=== PATIENT | male | born 1980 | race Caucasian/White ===

== ENCOUNTER 2016-12-07 04:10 | Day surgery (SDC) | payer OTHER ==
--- NOTE | ~2016-12-07 | US113 ---
[facility] A Service of [facility] RADIOLOGY TEXT RESULTS PATIENT: HUSSEIN CALLES LOCATION: [facility] : 84 UNIT #: [id number] AGE: [address]: Rogelio Bartholomew MD SEX: M ORDER DR: [id number] [facility] [address] [facility]. [place], [place] [address] [id number] I MR#: [id number] Acc #: [id number] NAME: HUSSEIN CALLES : 1980 SEX: M STUDY DATE/TIME: 12/07/2016 5:30 UNIT: [facility] ROOM: STUDY DESCRIPTION: US Scrotal Duplex Complete Attending Physician: Rogelio Bartholomew M.D. Ordering Physician: Nitin Bobo Aprn Primary Care Physician: Primary Care Physician No MEDICAL IMAGING REPORT This report is preliminary unless electronic signature is present EXAM Scrotal ultrasound examination including testicular Doppler vascular evaluation, 12/07/16 HISTORY 36-year-old male in the ED complaining of left side scrotal pain beginning at 03:00 a.m. today. TECHNIQUE Scrotal ultrasound examination was performed using high-resolution dash-scale ultrasound imaging along with color-flow and duplex Doppler vascular imaging. FINDINGS Both testes are normal in size and ultrasound appearance. No mass or other focal testicular lesion is demonstrated. The left epididymis is mildly enlarged when compared with the right. This is most likely inflammatory. Doppler evaluation shows normal, bilaterally symmetric testicular blood flow with no evidence of testicular torsion or acute orchitis. Mild acute epididymitis is a consideration. There is no scrotal fluid collection or additional abnormality. IMPRESSION 1. Both testes are normal in size and ultrasound appearance. No evidence of testicular mass or other focal lesion. 2. Normal bilateral testicular Doppler evaluation. No evidence of testicular torsion or acute orchitis. 3. Slight enlargement of the left epididymis with potential asymmetric prominence of plastic of epididymis blood flow on the left. Mild acute epididymitis is a consideration. 4. There is no hydrocele or other scrotal fluid collection. [facility] A Service of [facility] RADIOLOGY TEXT RESULTS PATIENT: HUSSEIN CALLES LOCATION: [facility] [address]-2 : [birth year] UNIT #: [id number] AGE: [address]: Rogelio Bartholomew MD SEX: M ORDER DR: Dictated by... Thomas Pacheco M.D. THIS IS AN ELECTRONICALLY VERIFIED REPORT Thomas Pacheco M.D. at 12/07/2016 4:12 PM PAT/jethro TD: 12/07/2016 10:48 JOB #: [id number] MEDICAL IMAGING REPORT COPY
--- NOTE | ~2016-12-07 | HP ---
Unit #: [id number] #: [id number] Patient: HUSSEIN CALLES [id number] [address] [address] [id number] Susannah MR#: [id number] NAME: HUSSEIN CALLES ROOM: Age: 36 Sex: M Admission Date: 12/07/2016 : 1980 Attending Physician: Rogelio Bartholomew M.D. Primary Care Physician: No Primary Care Physician HISTORY AND PHYSICAL CHIEF COMPLAINT Left testicular and flank pain. HISTORY This 36-year-old man presented to the emergency department primarily with acute left flank pain and nausea, but he developed left testicular pain after arrival. He had experienced painless gross hematuria last Monday and was treated with Cipro, and it resolved before today's presenting symptoms. According to our office records, I saw him years ago for epididymitis, but he has no prior history of stone disease. He has had no fever or chills. He has had nausea but no vomiting. PAST MEDICAL HISTORY Asthma. SURGERIES None. MEDICATIONS None chronically. ALLERGIES None known. FAMILY HISTORY Negative for prostate cancer. SOCIAL HISTORY He has smoked 1 pack per day for 18 years. REVIEW OF SYSTEMS As above. PHYSICAL EXAMINATION GENERAL: The patient is uncomfortable, medicated in the emergency department. VITAL SIGNS: Afebrile with stable vital signs. Temperature 98.5 degrees, pulse 80, blood pressure 140/99, respirations 18. LUNGS: Clear. CARDIAC: Rate and rhythm are regular. ABDOMEN: He is overweight with marked left upper quadrant and left CVA tenderness. : Also, mild left testicular tenderness. Testicles feel normal to examination, however. Normal circumcised phallus. Unit #: [id number] #: [id number] Patient: HUSSEIN CALLES DIAGNOSTIC STUDIES LABORATORY: Urinalysis - 3+ blood, no nitrites, trace leukocyte esterase, 25-50 RBCs, 2-5 WBCs, no bacteria. Serum WBC is 7.2, hemoglobin 17. BUN is 15, creatinine 1.1. X-RAYS: CT scan shows bilateral obstructing renal stones. On the more symptomatic left side, the obstruction is only mild with mild hydronephrosis stemming from a 4.6 mm stone in the upper ureter. On the right side is a 7.4 mm stone in the junction of the bwr-am-njyll ureter with moderately severe hydroureteronephrosis. Scrotal ultrasound shows asymmetric increased vascularity of the left epididymis, not full blown but suggestive of the possibility of left epididymitis. IMPRESSION 1. Bilateral obstructing ureteral stones thought best in the setting of possible epididymitis treated with preemptive bilateral ureteral stents with second stage bilateral ureteroscopies. The patient and his significant other understand and agree with recommendation. 2. Possible left epididymitis versus referred pain. PLAN He has received Rocephin. We will proceed with cystoscopy and bilateral stent placement with intraoperative retrogrades. Dictated by Rogelio Bartholomew M.D. JAUN/sushil TD: 12/07/2016 12:07 JOB #: [id number] HISTORY AND PHYSICAL X Rogelio Bartholomew MD X HISTORY AND PHYSICAL
--- NOTE | ~2016-12-07 | OR ---
Unit #: [id number] #: [id number] Patient: HUSSEIN CALLES [id number] [address] [address] [id number] O MR#: [id number] NAME: HUSSEIN CALLES ROOM: Date of Procedure: 12/07/2016 Admission Date: 12/07/2016 Surgeon: Rogelio Bartholomew M.D. : 1980 Attending Physician: Rogelio Bartholomew M.D. OPERATIVE REPORT PREOPERATIVE DIAGNOSIS Bilateral obstructing ureteral stones. POSTOPERATIVE DIAGNOSIS Bilateral obstructing ureteral stones. PROCEDURE PERFORMED Cystoscopy with bilateral retrograde ureteral pyelograms and bilateral ureteral stent placement. ANESTHESIA General with local supplementation. INDICATIONS FOR PROCEDURE This 36-year-old man presented to the emergency department with primarily severe left-sided pain from the testicle to the flank. He has a stone obstructing the left ureter in its upper portion, which is only about 4.6 mm and causing mild hydronephrosis. There is a possibility of simultaneous left epididymitis. The asymptomatic right side is more severely obstructed with a 7.4 mm stone in the mid to upper ureter with moderately severe hydroureteronephrosis. DESCRIPTION OF PROCEDURE The patient had Rocephin in the emergency department and was taken to the operating room where after satisfactory general anesthesia and in dorsal lithotomy position, routine prep and drape were performed. The 21-Setswana rigid cystoscope was introduced with a 30-degree lens and video noting a normal anterior urethra, mild elevation of floor of bladder and a fairly normal appearing bladder with healthy mucosa. No stones, tumors or suspicious areas and normal symmetric orifices. A Pollack catheter was passed up the left ureter and a retrograde performed confirming mild hydronephrosis and a small partially obstructing stone as expected in the upper ureter. A Sensor guidewire was passed beyond this and a 28 x 6 double-J stent internally deployed in excellent position. A similar retrograde was performed on the right side showing severe obstruction at the pelvic brim level and a filling defect there. A guidewire passed easily beyond the stone and appeared to be in the kidney, but a Pollack catheter did not pass easily beyond the stone. To be sure there was not a small mucosal false passage before placing a stent, I Unit #: [id number] #: [id number] Patient: HUSSEIN CALLES probed with a second guidewire, angled glide type, but was unsuccessful passing this beyond the stone and therefore attempted again with the Pollack catheter over the original guidewire, which remained in place and this time, it passed easily beyond the stone. After confirming hydronephrotic drip, the guidewire was replaced through the Pollack and a similar 28 x 6 double-J stent internally deployed without difficulty and in excellent position. The bladder was drained. The cystoscope removed and Uro-jet applied to complete the procedure, which was well tolerated. The patient will be discharged if improved on antibiotics for possible epididymitis and after keeping the stent in for 14 days, we will plan bilateral ureteroscopy, laser lithotripsy, and stent removal or exchange on each side. Dictated by... Bill Ryan/andres TD: 12/08/2016 03:51 JOB #: [id number] OPERATIVE REPORT X Rogelio Bartholomew MD X PROCEDURE OPERATIVE NOTE
--- NOTE | ~2016-12-07 | CT4 ---
[facility] A Service of [facility] RADIOLOGY TEXT RESULTS PATIENT: HUSSEIN CALLES [facility] UNIT #: [id number] AGE: [address]: Rogelio Bartholomew MD SEX: M ORDER DR: [id number] [facility] [address] [place], [place] [address] [id number] I MR#: [id number] Acc #: [id number] NAME: HUSSEIN CALLES : 1980 SEX: M STUDY DATE/TIME: 12/07/2016 05:10 UNIT: [facility] ROOM: STUDY DESCRIPTION: CT Abd and Pelv Wo Cont Attending Physician: Rogelio Bartholomew M.D. Ordering Physician: Nitin Bobo Aprn Primary Care Physician: Primary Care Physician No MEDICAL IMAGING REPORT This report is preliminary unless electronic signature is present EXAM CT abdomen and pelvis 12/07/2016 05:10 INDICATION Left flank pain since 3 o'clock this morning with left testicular pain. TECHNIQUE Axial images were obtained through the abdomen and pelvis without contrast. Multiplanar reformats were obtained. Comparison is made with 02/26/2010. This CT examination was performed with one or more of the following radiation dose reduction techniques: automatic exposure control, adjustment of mA and/or kV according to patient size, and iterative reconstruction. FINDINGS ABDOMEN: There is some atelectasis in both lower lobes. Gallbladder is normal. There is mild left hydronephrosis secondary to a 5 mm stone in the proximal to mid ureter. There is severe right hydronephrosis secondary to a large 7 mm stone in the mid ureter slightly below the level of the left side stone. No stones are seen within the kidneys. Remaining unenhanced solid organs are normal. Unopacified GI tract is normal. PELVIS: The appendix is normal. The remainder of the unopacified GI tract is normal as well. There are no lower ureteral stones. The bladder is normal. No free fluid. IMPRESSION 1. Severe right-side hydronephrosis secondary to a 7 mm stone in the mid ureter. 2. Mild left side hydronephrosis secondary to a 5 mm stone near the mid ureter. 3. No other stones are seen. 4. Normal unopacified GI tract, including the appendix. [facility] A Service of [facility] RADIOLOGY TEXT RESULTS PATIENT: HUSSEIN CALLES LOCATION: [facility] [id number] : 84 UNIT #: [id number] AGE: [address]: Rogelio Bartholomew MD SEX: M ORDER DR: Dictated by... Rogelio Segundo Jr., M.D. THIS IS AN ELECTRONICALLY VERIFIED REPORT Rogelio Segundo Jr., M.D. at 12/07/2016 9:17 PM TORRES/tequila TD: 12/07/2016 10:37 JOB #: [id number] MEDICAL IMAGING REPORT COPY
[~2016-12-07 04:10] MED LIST: ALBUTEROL 0.5ML INH; ALBUTEROL17 G1 IH; ALBUTEROL17 GM INH; BENZONATATE PO; CILOXAN5 ML OP; CIPRO PO; CORTISPORIN-TC10 ML OT; DOXYCYCLINE HY100 M1 PO; DOXYCYCLINE HY100 M3 PO; ERYC250 MG PO; IBUPROFEN800 MG PO; NAPROSYN500 MG PO; NO MEDICATIONS; PERCOCET10 PO; PHENERGAN W/CO120 ML PO; PREDNISONE PO; PREDNISONE10 MG; PREDNISONE50 MG PO; VICODIN 5/500 T1 TAB PO; WESTCORT15 GM TOP; ZANTAC150 M1; ZITHROMAX PO; ZOVIRAX; ZYRTEC10 M2 PO
[2016-12-07 04:45] LABS: BASOPHIL# 0.1 X10e3 (0-0.3); BASOPHIL% 1.2 % (0-2.5); EOSINOPHIL# 0.2 X10e3 (0-0.7); EOSINOPHIL% 3.3 % (0.0-7.0); HEMATOCRIT 48.9 % (38.0-50.0); LYMPHOCYTE# 2.9 X10e3 (1.0-3.5); LYMPHOCYTE% 40.1 % (17.0-45.0); MEAN CORPUSCULAR HEMOGLOBIN 30.6 PG (28-34); MEAN CORPUSCULAR HGB CONC 34.8 g/dL (30-36); MEAN PLATELET VOLUME 7.7 FL (6.5-11.5); MONOCYTE# 0.5 X10e3 (0-1.0); MONOCYTE% 6.6 % (3.0-12.0); NEUTROPHIL# 3.5 X10e3 (1.5-7.1); NEUTROPHIL% 48.8 % (40-75); PLATELET COUNT 226 X10e3 (140-420); RED BLOOD COUNT 5.55 X10e (3.90-5.60); RED CELL DISTRIBUTION WIDTH 12.8 % (11.0-15.5); WHITE BLOOD COUNT 7.2 X10e3 (4.0-10.5)
[2016-12-07 04:46] LABS: DIFF IND NO
[2016-12-07 05:07] LABS: BLOOD UREA NITROGEN 15 mg/dL (9-23); BUN/CREATININE RATIO 13.63; CALCIUM SERUM 8.4 mg/dL (8.4-10.2); CARBON DIOXIDE 25 mmol/L (22-31); CHLORIDE 99 mmol/L (100-111); CREATININE SERUM 1.1 mg/dL (0.6-1.4); GLOM FILT RATE Estimated ABOVE60 mL/min (>60); GLUCOSE FASTING 125 mg/dL (70-110); POTASSIUM 3.6 mmol/L (3.5-5.1); SODIUM 131 mmol/L (135-145)
[2016-12-07 07:03] LABS: URINE APPEARANCE CLOUDY; URINE BILIRUBIN NEG (NEG); URINE BLOOD 3+ (NEG); URINE COLOR YELLOW; URINE GLUCOSE NEG (NEG); URINE KETONE NEG (NEG); URINE LEUKOCYTE ESTERASE TRACE (NEG); URINE NITRATE NEG (NEG); URINE PROTEIN NEG (NEG); URINE SPECIFIC GRAVITY 1.013 (1.003-1.035); URINE UROBILINOGEN 0.2 MG/DL (NEG)
[2016-12-07 07:06] LABS: U HYALINE CASTS AUWI 0-2 /[LPF]; URBCS1 AUWI 25-50 /[HPF] (0-2); URINE BACTERIA AUWI NEG (NEGATIVE); URINE SQUAMOUS EPITHELIAL CELL NONE SEEN /[HPF]
[2016-12-07] MEDS ORDERED: NO MEDICATIONS (07:08)
[2016-12-07 07:10] LABS: CULTURE INDICATED? NO
[2016-12-16] MEDS ORDERED: LEVOFLOXACIN500 MG PO (15:16)
[2016-12-16] MEDS ORDERED: OXYCODONE HCL5 M1 PO (15:16)
[2016-12-16] MEDS ORDERED: ZANTAC PO (15:42)
[2016-12-16] MEDS ORDERED: TUMS200 MG PO (15:43)
== END 2016-12-07 16:21 | disposition home or self-care (01) ==
LOC: CED 04:10 → CSUR 10:05
PROVIDERS: Nurse Practitioner Family
DX: N13.2 Hydronephrosis with renal and ureteral calculous obstruction (principal); J45.909 Unspecified asthma, uncomplicated; E66.9 Obesity, unspecified; K21.9 Gastro-esophageal reflux disease without esophagitis
CPT/HCPCS: 36415; 74176; 80048; 81003; 85025; 93975; 96361; 96374; 96375; 96376; 99285; C2617; J0696; J1170; J1885; J2250; J2405; J3010

== ENCOUNTER 2016-12-12 12:15 | Emergency (ER) | payer OTHER ==
--- NOTE | ~2016-12-12 | CT4 ---
[facility] A Service of [facility] & [facility] RADIOLOGY TEXT RESULTS PATIENT: HUSSEIN CALLES LOCATION: [facility] : 82 UNIT #: [id number] AGE: [address]: Diana Albarran MD SEX: M ORDER DR: [id number] [place] [id number] [facility]. [place], [place] [address] [id number] E MR#: [id number] Acc #: [id number] NAME: HUSSEIN CALLES : 1980 SEX: M STUDY DATE/TIME: 12/12/2016 12:27 UNIT: [facility] ROOM: STUDY DESCRIPTION: CT Abd and Pelv Wo Cont Attending Physician: Diana Albarran M.D. Ordering Physician: Diana Albarran M.D. Primary Care Physician: Primary Care Physician No MEDICAL IMAGING REPORT This report is preliminary unless electronic signature is present EXAM CT abdomen and pelvis without contrast, 12/12/2016 12:27 hours HISTORY 36-year-old man complaining of increasing left flank pain. Patient was diagnosed with a kidney stone on 12/07/2016 with progression of symptoms today. COMPARISON CT abdomen, 12/07/2016 TECHNIQUE Helical noncontrasted images were obtained from the lung bases through the pubic symphysis without oral or intravenous contrast. Sagittal and coronal reconstructions were performed. Total exam DLP 709 mGy-cm. This CT exam was performed with one or more of the following radiation dose reduction techniques: automatic exposure control, adjustment of mA and/or kV according to patient size, and iterative reconstruction. FINDINGS Images through the lung bases remain clear. There are no effusions. The distal esophagus is normal. Noncontrasted images through the abdomen demonstrate a normal appearance to the liver, spleen, pancreas, gallbladder, bile ducts and adrenal glands. The patient has new bilateral double-J stents extending from the renal pelvis to the bladder bilaterally since the prior CT. The previous dilatation of the right renal pelvis, right ureter has resolved. On image 107 there is a 4.0 mm calcification projecting along the medial margin of the stent in the right ureter at the level of L4-5 disc space which is slightly distal to the position of the stone on the prior exam. No STS. [facility] A Service of [facility] RADIOLOGY TEXT RESULTS PATIENT: [facility]USSEIN CALLES [id number] [birth year] UNIT #: [id number] AGE: [address]: Diana Albarran MD SEX: M ORDER DR: definite residual stone is seen in the left ureter or along the course of the left stent. The stomach, small bowel, cecum, terminal ileum and appendix are normal. There is no ascites. CT pelvis is unremarkable. IMPRESSION 1. There are bilateral ureteral double-J stents present extending from the renal pelves to the bladder. These are new since the CT of 12/07/2016. 2. On the left there is no intrarenal stone or residual dilatation of the left ureter. No stone is seen along the left ureteral stent. 3. On the right side there is resolution of the pelvocaliectasis and ureterectasis. There is however a persistent 4.0 mm stone projecting in the ureter at the level of the L4-5 level just medial to the stent. 4. No bladder stone seen. 5. The stomach, small bowel, colon and appendix demonstrate no acute findings. There are a few diverticula in the descending colon without evidence of acute inflammation. STAT * RESULT Dictated by... Earnestine Tellez M.D. THIS IS AN ELECTRONICALLY VERIFIED REPORT Earnestine Tellez M.D. at 12/12/2016 1:34 PM Gabriel TD: 12/12/2016 12:56 JOB #: [id number] MEDICAL IMAGING REPORT COPY
--- NOTE | ~2016-12-12 | US115 ---
[facility] A Service of [facility] & [facility] RADIOLOGY TEXT RESULTS PATIENT: HUSSEIN CALLES LOCATION: [facility] : 82 UNIT #: [id number] AGE: [address]: Diana Albarran MD SEX: M ORDER DR: [id number] [facility] [address] [facility]. [place], [place] [address] [id number] E MR#: [id number] Acc #: [id number] NAME: HUSSEIN CALLES : 1980 SEX: M STUDY DATE/TIME: 12/12/2016 14:26 UNIT: [facility] ROOM: STUDY DESCRIPTION: US Scrotum and Contents Attending Physician: Diana Albarran M.D. Ordering Physician: Diana Albarran M.D. Primary Care Physician: Primary Care Physician No MEDICAL IMAGING REPORT This report is preliminary unless electronic signature is present EXAM Scrotal ultrasound, 12/12/2016 HISTORY 36-year-old male left testicular pain starting 5 days ago. The patient had a history of bilateral kidney stones with a stent placed 5 days ago. Real-time examination demonstrates the testicles to be of normal size shape and echogenicity. No intratesticular mass lesions identified. Epididymi appear normal. Color Doppler confirms the presence of flow. No significant hydrocele or varicocele is identified. IMPRESSION Normal bilateral testicular ultrasound. No evidence of torsion or mass. Dictated by... Kunal Chung M.D. THIS IS AN ELECTRONICALLY VERIFIED REPORT Kunal Chung M.D. at 12/13/2016 6:30 PM HUNTER/michelle TD: 12/12/2016 23:30 JOB #: [id number] MEDICAL IMAGING REPORT COPY
[2016-12-12 12:14] LABS: BASOPHIL# 0.1 X10e3 (0-0.3); BASOPHIL% 1.2 % (0-2.5); EOSINOPHIL# 0.3 X10e3 (0-0.7); EOSINOPHIL% 2.7 % (0.0-7.0); HEMATOCRIT 51.6 % (38.0-50.0); HEMOGLOBIN 17.7 gm/dL (13.0-16.0); LYMPHOCYTE# 1.9 X10e3 (1.0-3.5); LYMPHOCYTE% 20.5 % (17.0-45.0); MEAN CELL VOLUME 87.8 FL (83-96); MEAN CORPUSCULAR HEMOGLOBIN 30.2 PG (28-34); MEAN CORPUSCULAR HGB CONC 34.4 g/dL (30-36); MEAN PLATELET VOLUME 7.6 FL (6.5-11.5); MONOCYTE# 0.5 X10e3 (0-1.0); MONOCYTE% 5.1 % (3.0-12.0); NEUTROPHIL# 6.7 X10e3 (1.5-7.1); NEUTROPHIL% 70.5 % (40-75); PLATELET COUNT 243 X10e3 (140-420); RED BLOOD COUNT 5.88 X10e (3.90-5.60); RED CELL DISTRIBUTION WIDTH 13.2 % (11.0-15.5); WHITE BLOOD COUNT 9.5 X10e3 (4.0-10.5)
[2016-12-12 12:16] LABS: DIFF IND NO
[2016-12-12 12:42] LABS: BLOOD UREA NITROGEN 20 mg/dL (9-23); BUN/CREATININE RATIO 16.66; CALCIUM SERUM 10.5 mg/dL (8.4-10.2); CARBON DIOXIDE 23 mmol/L (22-31); CHLORIDE 104 mmol/L (100-111); CREATININE SERUM 1.2 mg/dL (0.6-1.4); GLOM FILT RATE Estimated ABOVE60 mL/min (>60); GLUCOSE FASTING 95 mg/dL (70-110); POTASSIUM 4.6 mmol/L (3.5-5.1); SODIUM 136 mmol/L (135-145)
[2016-12-12 13:26] LABS: URINE SOURCE CLEAN CATCH
[2016-12-12 14:02] LABS: URINE APPEARANCE CLOUDY; URINE COLOR BROWN; URINE GLUCOSE NORM (NEG); URINE ICTOTEST NEG (NEG); URINE KETONE NEG (NEG); URINE LEUKOCYTE ESTERASE 2+ (NEG); URINE NITRATE POS (NEG); URINE PH 6.5 (5-8); URINE PROTEIN 2+ (NEG); URINE SPECIFIC GRAVITY 1.025 (1.003-1.035); URINE UROBILINOGEN NORM (NEG)
[2016-12-12 14:03] LABS: URBCS1 AUWI INNUM /[HPF] (0-2); URINE BILIRUBIN NEG (NEG); URINE BLOOD 4+ (NEG)
[2016-12-12 14:05] LABS: CULTURE INDICATED? YES; URINE BACTERIA AUWI NEG (NEGATIVE); URINE SQUAMOUS EPITHELIAL CELL FEW /[HPF]
[2016-12-16] MEDS ORDERED: LEVOFLOXACIN500 MG PO (15:16)
[2016-12-16] MEDS ORDERED: OXYCODONE HCL5 M1 PO (15:16)
[2016-12-16] MEDS ORDERED: ZANTAC PO (15:42)
[2016-12-16] MEDS ORDERED: TUMS200 MG PO (15:43)
== END 2016-12-12 16:25 | disposition home or self-care (01) ==
LOC: CED 12:15
PROVIDERS: Emergency Medicine
DX: N23 Unspecified renal colic (principal)
CPT/HCPCS: 36415; 74176; 76870; 80048; 81003; 85025; 87086; 93976; 96361; 96374; 96375; 99284; J1170

== ENCOUNTER → 2016-12-21 | Day surgery (SDC) | payer OTHER ==
[~2016-12-21] MED LIST changes: +LEVOFLOXACIN500 MG PO; +OXYCODONE HCL5 M1 PO; +TUMS200 MG PO; +ZANTAC PO
--- NOTE | ~2016-12-21 | OR ---
Unit #: [id number] #: [id number] Patient: HUSSEIN CALLES [id number] [address] [place], [place] [address] [id number] O MR#: [id number] NAME: HUSSEIN CALLES ROOM: Date of Procedure: 12/21/2016 Admission Date: 12/21/2016 Surgeon: Rogelio Bartholomew M.D. : 1980 Attending Physician: Rogelio Bartholomew M.D. OPERATIVE REPORT PREOPERATIVE DIAGNOSIS Bilateral ureteral stones. POSTOPERATIVE DIAGNOSIS Bilateral ureteral stones. PROCEDURE PERFORMED Bilateral rigid and flexible ureteroscopy, holmium laser lithotripsy, basket extraction, stent placement. ANESTHESIA General with local supplementation. INDICATIONS FOR PROCEDURE This 36-year-old man presented with left epididymitis and symptomatic right ureteral stone and was found to have a mildly obstructing left ureteral stone also. Bilateral stents were placed and he has been treated with antibiotics. Although, a scrotal ultrasound through the emergency department since this episode is normal. He still complains of left testicular pain despite having been on Levaquin up to this point. DESCRIPTION OF PROCEDURE The patient was given satisfactory general anesthesia and positioned in dorsal lithotomy. The genitalia were prepped and draped. The 21-Amharic rigid cystoscope was introduced with a 30-degree lens and video, noting both stent curls in appropriate position. No stones in the bladder. The left ureteral stent was extracted. A Sensor guidewire passed up through a Pollack catheter and rigid ureteroscopy was performed up to the level of the pelvic brim. Then, a second guidewire was introduced. Then, flexible ureteroscope advanced to where the stone was seen in the proximal ureter. The stone was smaller of the two and there was no periureteral inflammation. The stone was rough, irregular, and treated with a 200 nanometer laser fiber at settings of 10 and 1.0. It was trimmed down until there was a fragment small enough to basket extract. This was grasped with the basket and all other pieces were irrigated out ahead of it. All devices were removed from the left side at this point, and the stone fragment was submitted for chemical analysis. A virtually identical procedure was repeated on the right side, noting only that it was a little more difficult to advance the ureteroscope on the right despite good dilation and the stone itself in the proximal ureter was larger and fairly well impacted with periureteral inflammation Unit #: [id number] #: [id number] Patient: STEVAN,HUSSEIN obscuring the initial treatment of the stone. The laser had to be very carefully placed on it to break it up enough to push it back where it could be more freely broken up. Similarly, again basket was applied to a fragment and others irrigated out, but insufficiently. At this point, the ureteroscope was readvanced over the second guidewire. The entire kidney explored. There were no refluxed fragments. Another trip through the ureter with the basket allowed it to be rendered completely free. The area of impaction was inspected. There was no bleeding or trauma and no mucosal disruption. So, stent placement was not thought to be needed. All devices were removed. The bladder drained. Stones irrigated from the bladder and additionally submitted with the specimen. A Uro-Jet was applied. He will be switched to Bactrim for 2 weeks and seen in followup in 1 month and he is also provided additional prescription for Percocet, and work excuse through 12/26/2016. Dictated by... Rogelio Bartholomew M.D. JAUN/andres TD: 12/22/2016 06:21 JOB #: [id number] OPERATIVE REPORT Page 1 of 1 X Rogelio Bartholomew MD PROCEDURE OPERATIVE NOTE
== END | disposition home or self-care (01) ==
LOC: CSUR 11:07
PROVIDERS: Urology
DX: N20.1 Calculus of ureter (principal); N45.1 Epididymitis; K21.9 Gastro-esophageal reflux disease without esophagitis; J45.909 Unspecified asthma, uncomplicated; F17.200 Nicotine dependence, unspecified, uncomplicated; Z79.2 Long term (current) use of antibiotics; Z79.899 Other long term (current) drug therapy; Z87.442 Personal history of urinary calculi; Z87.440 Personal history of urinary (tract) infections; Z98.890 Other specified postprocedural states
CPT/HCPCS: 82365; 88300; C1758; J1170; J1885; J2250; J2270; J2405; J3010

== ENCOUNTER 2017-02-01 12:01 | Emergency (ER) | payer OTHER ==
--- NOTE | ~2017-02-01 | CR63 ---
[facility] A Service of [facility] RADIOLOGY TEXT RESULTS PATIENT: HUSSEIN CALLES LOCATION: [facility] : 84 UNIT #: [id number] AGE: [address]: AZAEL ORNELAS SEX: M ORDER DR: [id number] [place] [id number] [facility]. [place], [place] [address] [id number] E MR#: [id number] Acc #: [id number] NAME: HUSSEIN CALLES : 1980 SEX: M STUDY DATE/TIME: 02/01/2017 12:14 UNIT: [facility] ROOM: STUDY DESCRIPTION: CR Chest 2 View Attending Physician: Azael Ornelas Aprn Ordering Physician: Azael Ornelas Aprn Primary Care Physician: Primary Care Physician No MEDICAL IMAGING REPORT This report is preliminary unless electronic signature is present EXAM 2 views of the chest COMPARISON February 22, 2016 and February 27, 2013 INDICATION 36-year-old male with dyspnea, wheezing and cough for 3 days. History of asthma. FINDINGS Cardiomediastinal silhouette is within normal limits. There are low lung volumes with bronchovascular crowding. Bronchovascular structures in the medial right lung base appear somewhat prominent. This has not significantly changed from 2013. No evidence of pneumothorax, pleural effusion or acute airspace disease. Minimal multilevel anterior osteophyte formation of the thoracic vertebral bodies. IMPRESSION Low lung volumes with bronchovascular crowding. Normal heart size. No acute radiographic abnormality. Dictated by... Robin Hollingsworth M.D. THIS IS AN ELECTRONICALLY VERIFIED REPORT Robin Hollingsworth M.D. at 02/01/2017 2:28 PM BIANCA/cedrick TD: 02/01/2017 14:17 JOB #: [id number] [facility] A Service of [facility] RADIOLOGY TEXT RESULTS PATIENT: HUSSEIN CALLES LOCATION: [facility] : 84 UNIT #: [id number] AGE: [address]: AZAEL ORNELAS SEX: M ORDER DR: MEDICAL IMAGING REPORT Page 1 of 1 COPY
== END 2017-02-01 14:34 | disposition home or self-care (01) ==
LOC: CFTX 12:01
DX: J45.901 Unspecified asthma with (acute) exacerbation (principal); Z87.442 Personal history of urinary calculi; F17.210 Nicotine dependence, cigarettes, uncomplicated
CPT/HCPCS: 71020; 94640; 99283

== ENCOUNTER 2017-05-24 14:11 | Emergency (ER) | payer OTHER ==
[~2017-05-24] VITALS: Ht 188 cm; Wt 131.5 kg
--- NOTE | ~2017-05-24 | EKG ---
PATIENT: HUSSEIN CALLES UNIT #: [id number] Ventricular Rate: 83 BPM Atrial Rate: 83 BPM P-R Interval: 140 ms QRS Duration: 98 ms Q-T Interval: 352 ms QTC Calculation(Bezet): 413 ms P [place]: 35 degrees Calculated R [place]: 35 degrees Calculated T [place]: 54 degrees Diagnosis Line: Normal sinus rhythm Diagnosis Line: Normal ECG Diagnosis Line: When compared with ECG of 22-FEB-2016 16:41, Diagnosis Line: No significant change was found Diagnosis Line: Confirmed by MIKEY ALMARAZ MD ([id number]) on 05/25/2017 Diagnosis Line: 10:22:13 PM INTERPRETING MD: SUNG LOPEZ
--- NOTE | ~2017-05-24 | CR72 ---
[facility] A Service of [facility] / [facility] RADIOLOGY TEXT RESULTS PATIENT: HUSSEIN CALLES LOCATION: [facility] : 84 UNIT #: [id number] AGE: [address]: Jacob Randall MD SEX: M ORDER DR: [id number] [facility] [address] [place], [place] [address] [id number] MR#: [id number] Acc #: [id number] NAME: HUSSEIN CALLES : 1980 SEX: M STUDY DATE/TIME: 05/24/2017 15:10 UNIT: [facility] ROOM: STUDY DESCRIPTION: CR Chest Single View Portable Attending Physician: Jacob Randall M.D. Referring Physician: No Ref Unknown Ordering Physician: Jacob Randall M.D. Primary Care Physician: No Primary Care Physician MEDICAL IMAGING REPORT This report is preliminary unless electronic signature is present EXAM Portable chest 05/24/2017 INDICATIONS Midsternal chest pain and cough for the last 3 hours. The patient is a smoker. FINDINGS AP portable chest compared with 02/01/2017. Cardiac and mediastinal contours are normal. The lungs are clear. No pneumothorax. IMPRESSION No active disease. Dictated by... Rogelio Segundo Jr., M.D. THIS IS AN ELECTRONICALLY VERIFIED REPORT Rogelio Segundo Jr., M.D. at 05/25/2017 4:32 PM TORRES/josé TD: 05/24/2017 18:16 JOB #: [id number] MEDICAL IMAGING REPORT Page 1 of 1 COPY
[2017-05-24 15:29] LABS: BASOPHIL# 0.1 X10e3 (0-0.3); BASOPHIL% 0.9 % (0-2.5); EOSINOPHIL# 0.2 X10e3 (0-0.7); EOSINOPHIL% 2.7 % (0.0-7.0); HEMATOCRIT 49.6 % (38.0-50.0); HEMOGLOBIN 17.2 gm/dL (13.0-16.0); LYMPHOCYTE# 2.7 X10e3 (1.0-3.5); LYMPHOCYTE% 30.6 % (17.0-45.0); MEAN CORPUSCULAR HEMOGLOBIN 30.2 PG (28-34); MEAN CORPUSCULAR HGB CONC 34.7 g/dL (30-36); MEAN PLATELET VOLUME 7.4 FL (6.5-11.5); MONOCYTE# 0.5 X10e3 (0-1.0); MONOCYTE% 5.4 % (3.0-12.0); NEUTROPHIL# 5.4 X10e3 (1.5-7.1); NEUTROPHIL% 60.4 % (40-75); PLATELET COUNT 244 X10e3 (140-420); RED CELL DISTRIBUTION WIDTH 13.1 % (11.0-15.5); WHITE BLOOD COUNT 8.9 X10e3 (4.0-10.5)
[2017-05-24 15:31] LABS: DIFF IND NO
[2017-05-24 15:46] LABS: ALBUMIN SERUM 4.1 g/dL (3.5-5.0); BILIRUBIN, DIRECT 0.1 mg/dL (0.0-0.2); BILIRUBIN,INDIRECT 0.5 mg/dL (0.0-0.9); BILIRUBIN,TOTAL 0.6 mg/dL (0.2-2.0); GLOM FILT RATE Estimated 97.1 mL/min (>60); MAGNESIUM 2.1 mg/dL (1.6-3.0); POTASSIUM 3.8 mmol/L (3.5-5.1)
[2017-05-24 16:08] LABS: POC - CKMB 2.9 ng/mL (0.0-7.9); POC - TROPONIN <0.05 ng/mL (<=0.05)
[2017-05-24 17:13] LABS: POC - CKMB 2.1 ng/mL (0.0-7.9); POC - TROPONIN <0.05 ng/mL (<=0.05)
== END 2017-05-24 18:30 | disposition home or self-care (01) ==
LOC: CED 14:11
PROVIDERS: Emergency Medicine
DX: R07.89 Other chest pain (principal); R06.02 Shortness of breath; R05 Cough; J45.909 Unspecified asthma, uncomplicated; F17.200 Nicotine dependence, unspecified, uncomplicated
CPT/HCPCS: 36415; 71010; 80048; 80076; 82553; 83735; 84484; 85025; 93005; 99285